=== PATIENT | female | born 1950 | race Caucasian/White ===

== ENCOUNTER → 2016-08-04 | Outpatient (CLI) | payer OTHER, MEDICARE ==
[~2016-08-04] MED LIST: ALLEGRA ALLERG180 MG PO; APRESOLINE25 MG PO; AZITHROMYCIN250 MG1 PO; Aspirin E.C. PO; BENADRYL ALLERG25 MG PO; CALCITRATE + D1 EACH PO; CALCITRIOL0.25 MCG PO; CALICUM 500+D1 EACH PO; CARDIZEM CD360 MG PO; CIPRO500 MG PO; CLARITIN10 M3 PO; COLACE100 MG PO; COMPAZINE10 MG PO; Citracal Maximum (Ca PO; Colace PO; DILAUDID2 MG PO; DILTIAZEM 24HR360 M1 PO; DIOVAN HCT 31 TABLET PO; DIOVAN320 MG PO; FLONASE16 G1 BOTH NARES; HUMALOG SC; HUMALOG100 UNIT/1 SC; HYDRALAZINE HCL25 MG PO; HYDRALAZINE HCL50 MG PO; K-DUR20 MEQ PO; KADIAN10 MG PO; KLOR-CON M2020 MEQ PO; LANTUS 3 M100 UNITS1 SC; LASIX20 MG PO; LEVEMIR FL100 UNIT/1 SC; LEVIMIR SC; LIPITOR20 MG PO; LISINOPRIL10 MG PO; LISINOPRIL20 MG PO; LO-DOSE ASPIRIN81 M1 PO; Lipitor PO; Lovenox SC; MAG DELAY64 MG PO; MAG-OXIDE400 MG PO; MAGNESIUM OXID400 MG PO; MAGNESIUM400 MG PO; MIDAMOR5 MG PO; MIRALAX17 GM PO; MIRALAX255 GM PO; MOBIC7.5 MG PO; MORPHINE SULFAT15 MG PO; MULTIVITAMIN1 EAC2 PO; NORVASC10 MG PO; NORVASC5 MG PO; NOVOLOG PE100 UNITS/ SC; PERCOCET 5/31 TABLET PO; POT CITRATE-CI1 EACH PO; ROXICODONE5 MG PO; SENNOSIDES8.6 MG PO; SENOKOT,SENN1 TABLET PO; SLOW-MAG,MAG DE64 MG PO; TOPROL XL50 MG PO; TOPROL XL6.25 MG PO; TOUJEO SOL300 UNIT/1 SC; TRAMADOL HCL50 MG PO; TUMERIC PO; TUMS500 MG PO; TYLENOL REGULA325 MG PO; VITAMIN B-6200 MG PO; XARELTO15 MG PO; XARELTO20 MG PO; ZOFRAN4 MG PO; [UNRECOGNIZED DRUG - OTHER]
== END | disposition home or self-care (01) ==
LOC: RAD 09:05
PROC: 0W993ZZ Drainage of Right Pleural Cavity, Percutaneous Approach (ICD-10-PCS; principal; 2016-08-04)
DX: J90 Pleural effusion, not elsewhere classified (principal); C56.9 Malignant neoplasm of unspecified ovary
CPT/HCPCS: 71020

== ENCOUNTER 2016-08-11 17:44 | Inpatient (IN) | payer OTHER, MEDICARE ==
[~2016-08-11] VITALS: Ht 152.4 cm; Wt 97.0 kg
[~2016-08-11 17:44] MED LIST changes: -DILTIAZEM 24HR360 M1 PO; -KLOR-CON M2020 MEQ PO; -LISINOPRIL20 MG PO; -MAGNESIUM OXID400 MG PO; -MIRALAX255 GM PO; -SENNOSIDES8.6 MG PO; -[UNRECOGNIZED DRUG - OTHER]
[2016-08-11 18:24] LABS: CHLORIDE 101 mEq/L (99-109); POTASSIUM 3.8 mEq/L (3.7-5.4); SODIUM 140 mEq/L (136-147)
[2016-08-11 18:25] LABS: EOSINOPHIL (%) 0.6 % (0-5); HEMATOCRIT 32.7 % (36.0-46.0); IMMATURE GRANULOCYTE (%) 1.3 % (0.0-0.7); IMMATURE GRANULOCYTE COUNT 0.2 K/uL; LYMPHOCYTE COUNT 0.3 K/uL (1.0-2.8); MCH 25.6 PG (29.0-34.0); MCHC 30.9 G/DL (30.0-36.0); MEAN PLAT.VOLUME 10.7 uM^3 (9.5-12.4); MONOCYTE (%) 2.5 % (3-12); NEUTROPHIL (%) 75.6 % (45-76); NEUTROPHIL COUNT 1.2 K/uL (1.8-6.4); RBC DIS.WIDTH-CV 16.2 % (11.8-14.6); RBC DIS.WIDTH-SD 48.2 % (39-53); RED BLOOD COUNT 3.94 M/uL (3.80-5.20)
[2016-08-11 18:26] LABS: GLUCOSE 137 mg/dL (70-99)
[2016-08-11 18:27] LABS: ANION GAP 14 MEQ/L (2-14)
[2016-08-11 18:28] LABS: PLATELET COUNT 272 K/uL (156-360); TOTAL BILIRUBIN 0.5 mg/dL (0.0-1.0); WHITE BLOOD COUNT 1.6 K/uL (4.1-10.2)
[2016-08-11 18:29] LABS: ALKALINE PHOSPHATASE 132 IU/L (3-129); GFR ESTIMATE (CALCULATED) 48 mL/min/
[2016-08-11 18:30] LABS: ADD MIUA? NO; BILIRUBIN SMALL; BLOOD NEGATIVE; COLOR YELLOW ((YELLOW)); GLUCOSE (STRIP) NEGATIVE; KETONES TRACE; LEUKOCYTES NEGATIVE; NITRITE NEGATIVE; PROTEIN (STRIP) TRACE; SPECIFIC GRAVITY 1.023 (1.000-1.030); UCUL ADDED? NO; UROBILINOGEN 0.2 MG/DL (0.2-1.0)
[2016-08-11 18:31] LABS: UREA NITROGEN (BUN) 21 mg/dL (9-23)
[2016-08-11] MEDS ORDERED: DILTIAZEM 24HR360 M1 PO (21:32)
[2016-08-11] MEDS ORDERED: LISINOPRIL20 MG PO (21:35)
[2016-08-11] MEDS ORDERED: MAGNESIUM OXID400 MG PO (21:35)
[2016-08-11] MEDS ORDERED: TUMS500 MG PO (21:36)
[2016-08-11] MEDS ORDERED: KLOR-CON M2020 MEQ PO (21:37)
[2016-08-11] MEDS ORDERED: ALLEGRA ALLERG180 MG PO (21:37)
[2016-08-11] MEDS ORDERED: LASIX20 MG PO (21:37)
[2016-08-11] MEDS ORDERED: MIRALAX255 GM PO (21:38)
[2016-08-11] MEDS ORDERED: FLONASE16 G1 BOTH NARES (21:38)
[2016-08-11] MEDS ORDERED: SENNOSIDES8.6 MG PO (21:39)
[2016-08-11] MEDS ORDERED: [UNRECOGNIZED DRUG - OTHER] (21:40)
[2016-08-11] MEDS ORDERED: COMPAZINE10 MG PO (21:40)
[2016-08-11 22:34] LABS: POINT-OF-CARE METER ID UU13113747
[2016-08-12 01:12] VITALS: BP 173/88
[2016-08-12 01:24] LABS: POINT-OF-CARE METER ID UU13113725
[2016-08-12 07:29] LABS: ALKALINE PHOSPHATASE 121 IU/L (3-129); ANION GAP 9 MEQ/L (2-14); CHLORIDE 102 MEQ/L (99-109); GFR ESTIMATE (CALCULATED) 48 mL/min/; LIPASE 10 U/L (1.0-51.0); POTASSIUM 3.8 MEQ/L (3.7-5.4); SAMPLE HEMOLYSIS CHECK 0; SAMPLE ICTERIC CHECK 0; SAMPLE LIPEMIA CHECK 0; SODIUM 143 MEQ/L (136-147); TOTAL BILIRUBIN 0.5 MG/DL (0.0-1.0); UREA NITROGEN (BUN) 21 mg/dL (9-23)
[2016-08-12 07:31] LABS: GLUCOSE 79 mg/dL (70-99)
[2016-08-12 07:34] LABS: HEMATOCRIT 30.3 % (36.0-46.0); MCH 25.8 PG (29.0-34.0); MCHC 30.7 G/DL (30.0-36.0); MEAN PLAT.VOLUME 10.8 uM^3 (9.5-12.4); PLATELET COUNT 258 K/uL (156-360); RBC DIS.WIDTH-CV 16.4 % (11.8-14.6); RBC DIS.WIDTH-SD 50.2 % (39-53)
[2016-08-12 07:35] LABS: WHITE BLOOD COUNT 1.6 K/uL (4.1-10.2)
[2016-08-12 08:16] VITALS: BP 130/60
[2016-08-12 11:23] LABS: POINT-OF-CARE METER ID UU13113725
[2016-08-12 15:49] VITALS: BP 177/84
[2016-08-12 17:19] VITALS: BP 153/78
[2016-08-12 17:29] LABS: POINT-OF-CARE METER ID UU13113725
[2016-08-12 20:09] VITALS: BP 147/81
[2016-08-12 21:45] LABS: POINT-OF-CARE METER ID UU13113725
[2016-08-12 23:45] LABS: POINT-OF-CARE METER ID UU13113725
[2016-08-13 00:03] VITALS: BP 153/72
[2016-08-13 00:16] LABS: POINT-OF-CARE METER ID UU13113725
[2016-08-13 04:09] VITALS: BP 143/82
[2016-08-13 07:08] LABS: HEMATOCRIT 30.6 % (36.0-46.0); MCH 25.8 PG (29.0-34.0); MCHC 30.4 G/DL (30.0-36.0); MEAN PLAT.VOLUME 10.5 uM^3 (9.5-12.4); PLATELET COUNT 292 K/uL (156-360); RBC DIS.WIDTH-CV 16.5 % (11.8-14.6); RBC DIS.WIDTH-SD 50.9 % (39-53)
[2016-08-13 07:13] LABS: WHITE BLOOD COUNT 1.7 K/uL (4.1-10.2)
[2016-08-13 08:37] VITALS: BP 148/88
[2016-08-13 15:49] LABS: POINT-OF-CARE METER ID UU13113725
[2016-08-13 16:11] VITALS: BP 154/88
[2016-08-13 22:42] VITALS: BP 138/71; BP 140/54
[2016-08-14 08:44] VITALS: BP 128/78
[2016-08-14 11:30] LABS: POINT-OF-CARE USER ID 609231305
[2016-08-14 16:10] LABS: POINT-OF-CARE METER ID UU13113725
[2016-08-14 16:48] VITALS: BP 129/60
[2016-08-14 23:20] VITALS: BP 136/80
[2016-08-15 08:23] VITALS: BP 129/75
[2016-08-15 11:19] LABS: POINT-OF-CARE METER ID UU13113725
[2016-08-15 16:27] VITALS: BP 139/84
[2016-08-15 16:31] LABS: POINT-OF-CARE METER ID UU13113725
[2016-08-16 06:46] LABS: HEMATOCRIT 27.2 % (36.0-46.0); MCH 25.3 PG (29.0-34.0); MCHC 30.1 G/DL (30.0-36.0); MEAN PLAT.VOLUME 10.1 uM^3 (9.5-12.4); PLATELET COUNT 366 K/uL (156-360); RBC DIS.WIDTH-CV 16.7 % (11.8-14.6); RBC DIS.WIDTH-SD 50.9 % (39-53); RED BLOOD COUNT 3.24 M/uL (3.80-5.20); WHITE BLOOD COUNT 2.1 K/uL (4.1-10.2)
[2016-08-16 06:59] LABS: EOSINOPHIL (%) 5.4 % (0-5); EOSINOPHIL COUNT 0.1 K/uL (0-0.3); IMMATURE GRANULOCYTE (%) 0.5 % (0.0-0.7); LYMPHOCYTE COUNT 1.1 K/uL (1.0-2.8); MONOCYTE (%) 15.1 % (3-12); MONOCYTE COUNT 0.3 K/uL (0-0.8); NEUTROPHIL (%) 26.8 % (45-76); NEUTROPHIL COUNT 0.6 K/uL (1.8-6.4)
[2016-08-16 07:17] LABS: ALKALINE PHOSPHATASE 114 IU/L (3-129); ANION GAP 6 MEQ/L (2-14); CHLORIDE 102 MEQ/L (99-109); GFR ESTIMATE (CALCULATED) 48 mL/min/; GLUCOSE 157 mg/dL (70-99); POTASSIUM 5.1 MEQ/L (3.7-5.4); SAMPLE HEMOLYSIS CHECK 0; SAMPLE ICTERIC CHECK 0; SAMPLE LIPEMIA CHECK 0; SODIUM 135 MEQ/L (136-147); TOTAL BILIRUBIN 0.6 MG/DL (0.0-1.0); UREA NITROGEN (BUN) 13 mg/dL (9-23)
[2016-08-16 07:46] LABS: HEMATOLOGY COMMENT 1 SMEAR COMPATIBLE; PLAT.SUFFICIENCY ADEQUATE
[2016-08-16 07:57] VITALS: BP 135/73
[2016-08-16 16:04] VITALS: BP 158/79; BP 162/88
[2016-08-16 23:33] LABS: POINT-OF-CARE METER ID UU13113725
[2016-08-16 23:36] VITALS: BP 147/67
[2016-08-17 06:03] LABS: POINT-OF-CARE METER ID UU13113725
[2016-08-17 06:44] LABS: HEMATOCRIT 26.8 % (36.0-46.0); MCH 25.3 PG (29.0-34.0); MCHC 30.2 G/DL (30.0-36.0); MCV 83.8 FL (83-99); MEAN PLAT.VOLUME 9.9 uM^3 (9.5-12.4); NRBC (%) 1.3 /100 WBC (0-0); PLATELET COUNT 364 K/uL (156-360); RBC DIS.WIDTH-CV 16.6 % (11.8-14.6); RBC DIS.WIDTH-SD 50.7 % (39-53); WHITE BLOOD COUNT 2.5 K/uL (4.1-10.2)
[2016-08-17 07:09] LABS: ANION GAP 7 MEQ/L (2-14); CHLORIDE 102 MEQ/L (99-109); GFR ESTIMATE (CALCULATED) 53 mL/min/; GLUCOSE 166 mg/dL (70-99); POTASSIUM 5.2 MEQ/L (3.7-5.4); SAMPLE HEMOLYSIS CHECK 0; SAMPLE ICTERIC CHECK 0; SAMPLE LIPEMIA CHECK 0; SODIUM 135 MEQ/L (136-147); UREA NITROGEN (BUN) 11 mg/dL (9-23)
[2016-08-17 07:12] LABS: EOSINOPHIL (%) 4.7 % (0-5); EOSINOPHIL COUNT 0.1 K/uL (0-0.3); IMMATURE GRANULOCYTE (%) 1.6 % (0.0-0.7); LYMPHOCYTE COUNT 1.1 K/uL (1.0-2.8); MONOCYTE (%) 19.7 % (3-12); MONOCYTE COUNT 0.5 K/uL (0-0.8); NEUTROPHIL (%) 28.7 % (45-76); NEUTROPHIL COUNT 0.7 K/uL (1.8-6.4)
[2016-08-17 07:52] LABS: HEMATOLOGY COMMENT 1 SMEAR COMPATIBLE; PLAT.SUFFICIENCY ADEQUATE; USER ID SDF
[2016-08-17 08:00] VITALS: BP 163/81
[2016-08-17 11:31] LABS: POINT-OF-CARE METER ID UU13113725
[2016-08-17 17:05] VITALS: BP 168/82
[2016-08-17 18:20] LABS: POINT-OF-CARE METER ID UU13113725
[2016-08-17 23:08] VITALS: BP 121/69
[2016-08-18 08:32] VITALS: BP 133/73
[2016-08-18 11:50] LABS: POINT-OF-CARE METER ID UU13113725
[2016-08-18 12:06] VITALS: BP 148/80
[2016-08-18 23:32] LABS: POINT-OF-CARE METER ID UU13113725
[2016-08-18 23:37] VITALS: BP 166/76
[2016-08-19 08:00] VITALS: BP 141/83
[2016-08-19 11:56] LABS: POINT-OF-CARE METER ID UU13113725
[2016-08-19 19:36] VITALS: BP 143/80
[2016-08-20 00:12] VITALS: BP 147/70
[2016-08-20 08:37] VITALS: BP 127/76
[2016-08-20 16:14] VITALS: BP 138/75
[2016-08-20 23:17] VITALS: BP 138/68
[2016-08-20 23:45] VITALS: BP 164/85
[2016-08-21 00:08] LABS: POINT-OF-CARE USER ID 611181321
[2016-08-21 00:24] LABS: HEMATOCRIT 30.2 % (36.0-46.0); INTER. NORMALIZED RATIO 1.4; MCH 25.3 PG (29.0-34.0); MCV 82.3 FL (83-99); PROTHROMBIN TIME 13.9 (9.2-11.2); PTT 30.1 (25-32); RED BLOOD COUNT 3.67 M/uL (3.80-5.20); WHITE BLOOD COUNT 10.7 K/uL (4.1-10.2)
[2016-08-21 00:25] LABS: MCHC 30.8 G/DL (30.0-36.0); MEAN PLAT.VOLUME 9.5 uM^3 (9.5-12.4); PLATELET COUNT 375 K/uL (156-360); RBC DIS.WIDTH-CV 17.2 % (11.8-14.6)
[2016-08-21 01:59] VITALS: BP 157/68
[2016-08-21 07:20] VITALS: BP 147/69
[2016-08-21 07:26] LABS: Estimated Average Glucose 143 mg/dL (70-123); HEMOGLOBIN A1c (GLYCOHEMOGLOB) 6.6 % HGB (Below 5.7)
[2016-08-21 07:32] LABS: HDL CHOLESTEROL 16 MG/DL (Desirable>=50); LDL CHOLESTEROL 19 mg/dL (Desirable<100); NON-HDL CHOLESTEROL 31 mg/dL (Desirable<160); TOTAL CHOLESTEROL 47 mg/dL (Desirable<200); TRIGLYCERIDES 60 MG/DL (Normal: <150)
[2016-08-21 08:03] LABS: POINT-OF-CARE METER ID UU14174225
[2016-08-21 14:43] LABS: HEMATOLOGY COMMENT 1 SMEAR COMPATIBLE; RBC DIS.WIDTH-SD 49.2 % (39-53)
[2016-08-21 16:00] VITALS: BP 138/71
[2016-08-21 23:34] VITALS: BP 142/69
[2016-08-21 23:43] VITALS: BP 161/94
[2016-08-22 06:15] LABS: POINT-OF-CARE METER ID UU14174225
[2016-08-22 07:28] VITALS: BP 133/67
[2016-08-22 14:56] VITALS: BP 128/70
[2016-08-22 23:02] VITALS: BP 137/77
[2016-08-23 07:19] VITALS: BP 137/66
[2016-08-23 11:15] VITALS: BP 162/84
[2016-08-23 11:39] LABS: POINT-OF-CARE METER ID UU14174225
[2016-08-23 15:32] VITALS: BP 146/66
[2016-08-23 23:32] VITALS: BP 161/72
[2016-08-24 07:25] VITALS: BP 148/74
[2016-08-24 15:35] VITALS: BP 143/61
[2016-08-25 00:20] VITALS: BP 153/82
[2016-08-25 08:14] VITALS: BP 164/85
[2016-08-25 12:26] VITALS: BP 164/85
[2016-08-25 13:04] LABS: HEMATOCRIT 30.4 % (36.0-46.0); MCH 25.8 PG (29.0-34.0); MCHC 30.9 G/DL (30.0-36.0); MCV 83.3 FL (83-99); MEAN PLAT.VOLUME 10.1 uM^3 (9.5-12.4); PLATELET COUNT 329 K/uL (156-360); RBC DIS.WIDTH-CV 18.4 % (11.8-14.6); RED BLOOD COUNT 3.65 M/uL (3.80-5.20)
[2016-08-25 13:05] LABS: WHITE BLOOD COUNT 15.2 K/uL (4.1-10.2)
[2016-08-25 15:00] VITALS: BP 138/73
[2016-08-26 01:00] VITALS: BP 147/77
[2016-08-26 07:35] VITALS: BP 173/71
[2016-08-26 15:47] VITALS: BP 145/74
[2016-08-26 23:32] VITALS: BP 162/77
[2016-08-27 00:18] LABS: POINT-OF-CARE USER ID BHSKTD
[2016-08-27 06:25] LABS: POINT-OF-CARE USER ID BHSKTD
[2016-08-27 06:41] LABS: ANION GAP 10 MEQ/L (2-14); CHLORIDE 102 MEQ/L (99-109); GFR ESTIMATE (CALCULATED) 48 mL/min/; GLUCOSE 153 mg/dL (70-99); POTASSIUM 4.8 MEQ/L (3.7-5.4); SAMPLE HEMOLYSIS CHECK 0; SAMPLE ICTERIC CHECK 0; SAMPLE LIPEMIA CHECK 0; SODIUM 132 MEQ/L (136-147); UREA NITROGEN (BUN) 14 mg/dL (9-23)
[2016-08-27 07:40] VITALS: BP 140/68
[2016-08-27 16:01] VITALS: BP 139/63
[2016-08-28] VITALS: BP 159/69
[2016-08-28 07:49] VITALS: BP 134/66
[2016-08-28] MEDS ORDERED: [UNRECOGNIZED DRUG - OTHER] IV (15:29)
[2016-08-28 15:43] VITALS: BP 169/77
[2016-08-29] VITALS: BP 156/67
[2016-08-29 07:38] VITALS: BP 193/91
[2016-08-29 11:52] VITALS: BP 158/82
[2016-08-29 15:43] VITALS: BP 128/66
[2016-08-30 00:16] VITALS: BP 173/77
[2016-08-30 08:02] VITALS: BP 163/86
[2016-08-30 15:10] VITALS: BP 144/76
[2016-08-30 23:50] VITALS: BP 154/89
[2016-08-31 07:14] LABS: EOSINOPHIL (%) 0 % (0-5); HEMATOCRIT 27.2 % (36.0-46.0); IMMATURE GRANULOCYTE (%) 0.8 % (0.0-0.7); IMMATURE GRANULOCYTE COUNT 0.1 K/uL; LYMPHOCYTE COUNT 1.7 K/uL (1.0-2.8); MCH 25.7 PG (29.0-34.0); MCHC 30.9 G/DL (30.0-36.0); MCV 83.2 FL (83-99); MEAN PLAT.VOLUME 9.4 uM^3 (9.5-12.4); MONOCYTE (%) 10.5 % (3-12); MONOCYTE COUNT 0.7 K/uL (0-0.8); NEUTROPHIL (%) 60.3 % (45-76); NEUTROPHIL COUNT 3.7 K/uL (1.8-6.4); PLATELET COUNT 313 K/uL (156-360); RBC DIS.WIDTH-CV 20.2 % (11.8-14.6); RBC DIS.WIDTH-SD 57.6 % (39-53); RED BLOOD COUNT 3.27 M/uL (3.80-5.20)
[2016-08-31 07:27] LABS: WHITE BLOOD COUNT 6.2 K/uL (4.1-10.2)
[2016-08-31 07:34] LABS: ANION GAP 6 MEQ/L (2-14); CHLORIDE 106 MEQ/L (99-109); GFR ESTIMATE (CALCULATED) 59 mL/min/; GLUCOSE 139 mg/dL (70-99); POTASSIUM 4.4 MEQ/L (3.7-5.4); SAMPLE HEMOLYSIS CHECK 0; SAMPLE ICTERIC CHECK 0; SAMPLE LIPEMIA CHECK 0; SODIUM 135 MEQ/L (136-147); UREA NITROGEN (BUN) 12 mg/dL (9-23)
[2016-08-31 07:37] VITALS: BP 164/79
[2016-08-31] MEDS ORDERED: NOVOLOG PE100 UNITS/ SC (08:05)
[2016-08-31] MEDS ORDERED: LOVENOX80 MG/0.8 SC (08:05)
[2016-08-31] MEDS ORDERED: DILAUDID1 MG/ML IV (08:05)
[2016-08-31 15:15] VITALS: BP 138/69
[2016-08-31 23:43] VITALS: BP 163/77
[2016-09-01 08:00] VITALS: BP 183/86
[2016-09-01] MEDS ORDERED: DURAGESIC25 MCG TD (08:09)
[2016-09-01 16:00] VITALS: BP 180/84
[2016-09-01 17:48] LABS: POINT-OF-CARE USER ID STWAMT51
[2016-09-01 23:49] VITALS: BP 172/79
[2016-09-02 08:21] VITALS: BP 143/67
[2016-09-02 16:18] VITALS: BP 155/83
[2016-09-03 00:03] VITALS: BP 181/85
[2016-09-03 00:24] LABS: POINT-OF-CARE USER ID 611181312
[2016-09-03 06:16] LABS: POINT-OF-CARE USER ID 603211116
[2016-09-03 07:52] VITALS: BP 142/80
[2016-09-03 15:32] VITALS: BP 180/76
[2016-09-03 23:55] LABS: POINT-OF-CARE USER ID BHSKTD
[2016-09-04 00:12] VITALS: BP 183/88
[2016-09-04 01:29] VITALS: BP 150/80
[2016-09-04 08:15] VITALS: BP 184/92
[2016-09-04] MEDS ORDERED: MORPHINE CON20 MG/M1 SL (08:22)
[2016-09-04 11:48] VITALS: BP 160/80
== END 2016-09-04 15:15 | disposition hospice, home (50) | DRG 388 ==
LOC: EME → EDBD 17:44 → EME 17:44 → EDOF 21:30 → 5SOUTH 21:30 → 5EAST 21:30 → 5SOUTH 08-21 01:28
PROVIDERS: Emergency Medicine; Hospitalist; Internal Medicine
PROC: 0SS9XZZ Reposition Right Hip Joint, External Approach (ICD-10-PCS; principal; 2016-08-21)
DX: K56.69 Other intestinal obstruction (principal); C80.0 Disseminated malignant neoplasm, unspecified; J91.0 Malignant pleural effusion; C78.7 Secondary malignant neoplasm of liver and intrahepatic bile duct; Z85.43 Personal history of malignant neoplasm of ovary; T84.020A Dislocation of internal right hip prosthesis, initial encounter; I63.9 Cerebral infarction, unspecified; H53.2 Diplopia; I82.441 Acute embolism and thrombosis of right tibial vein; I82.491 Acute embolism and thrombosis of other specified deep vein of right lower extremity; L89.159 Pressure ulcer of sacral region, unspecified stage; J02.9 Acute pharyngitis, unspecified; E11.649 Type 2 diabetes mellitus with hypoglycemia without coma; E11.65 Type 2 diabetes mellitus with hyperglycemia; D70.1 Agranulocytosis secondary to cancer chemotherapy; I12.9 Hypertensive chronic kidney disease with stage 1 through stage 4 chronic kidney disease, or unspecified chronic kidney disease; N18.9 Chronic kidney disease, unspecified; E11.22 Type 2 diabetes mellitus with diabetic chronic kidney disease; E78.5 Hyperlipidemia, unspecified; K59.00 Constipation, unspecified; E66.01 Morbid (severe) obesity due to excess calories; K40.90 Unilateral inguinal hernia, without obstruction or gangrene, not specified as recurrent; Z88.1 Allergy status to other antibiotic agents; Z79.4 Long term (current) use of insulin; Z88.5 Allergy status to narcotic agent; Z86.718 Personal history of other venous thrombosis and embolism; Z79.01 Long term (current) use of anticoagulants; Z68.36 Body mass index [BMI] 36.0-36.9, adult; Z66 Do not resuscitate
CPT/HCPCS: 70450; 70496; 70498; 70551; 71010; 73501; 73502; 74020; 74176; 74177; 76000; 80048; 80053; 80061; 81003; 82948; 83036; 83690; 85025; 85027; 85610; 85730; 86850; 86900; 86901; 93971; 99281; 99285; J0696; J1170; J1644; J1650; J1815; J1940; J2250; J2405; J2765; J2997; J3480; J7030; J7040; J7050; S0028